=== PATIENT | female | born 1950 | race Caucasian/White ===

== ENCOUNTER → 2018-10-09 | Outpatient (CLI) | payer MEDICARE, OTHER ==
--- NOTE | 2018-10-09 15:06 | RADIOLOGY REPORT (SQ) ---
EXAM DESCRIPTION: CT RT UPPER EXTREMITY WITHOUT COMPLETED DATE/TIME: 10/09/2018 2:45 pm REASON FOR STUDY: S62.101A FRACTURE OF UNSP CARPAL BONE, RIGHT WRIST, INIT FOR CLOS FX S62.101A FRA CTURE OF UNSP CARPAL BONE, RIGHT WRIST, INIT FOR COMPARISON: None. TECHNIQUE: Axial imaging performed through the right wrist with reformatted oblique coronal and obli que sagittal imaging windowed for bone and soft tissues. All CT scanners at this facility use dose modulation, iterative reconstruction, and/or weight based d osing when appropriate to reduce radiation dose to as low as reasonably achievable (ALARA). [facility]: Dose Right [facility]: CareDose [facility]: Dose Right [facility]: Teradose 4D [facility]: [employer] RADIATION DOSE: CT Rad equipment meets quality standard of care and radiation dose reduction techniq ues were employed. CTDIvol: 4.5 mGy. DLP: 90 mGy-cm. mGy. LIMITATIONS: None. FINDINGS: SOFT TISSUES: Unremarkable BONY ARCHITECTURE: There is a fracture at the base of the trapezium, extending into the scaphotrapezi um joint with a 7 mm free fragment. Fracture donor site off the palmar aspect proximal trapezium is marked with an arrow on coronal reconstruction series 301, images 12-16. No other fractures are identified throughout the field of view. RADIOCARPAL JOINT: Mild ulnar negative variance without impaction changes or erosion of the lunate. INTERCARPAL JOINTS: Joint spaces are well maintained. No widening of the scapholunate interval. METACARPOPHALANGEAL JOINTS: Intact. There is mild osteoarthritis at the 1st carpometacarpal joint wi th joint space narrowing and bony spurring OTHER: Radial fiberglass splint is present. IMPRESSION: Nonunited fracture with free 7 mm fragment, at the scaphotrapezium joint. Donor site fo r the fracture fragment is off the palmar proximal aspect of the trapezium bone TECHNICAL DOCUMENTATION: JOB ID: [id number] Quality ID # [id number]: Final reports with documentation of one or more dose reduction techniques (e.g., Au tomated exposure control, adjustment of the mA and/or kV according to patient size, use of iterative reconstruction technique) 2010 [employer]- All Rights Reserved Reading location - IP/workstation name: [email or web address] [email or web address] BEDS AT THE [facility]
== END ==
LOC: RAD 15:21
PROVIDERS: ATTEND Physician Assistant
DX: S62.101A Fracture of unspecified carpal bone, right wrist, initial encounter for closed fracture (principal); X58.XXXA Exposure to other specified factors, initial encounter

== ENCOUNTER → 2019-01-11 | Day surgery (SDC) | payer MEDICARE, OTHER ==
[~2019-01-11] MED LIST: LIDOCAINE 1% INJ-PF (10 MG/ML) 30 ML SDV ONE
--- NOTE | 2019-01-11 14:45 | RADIOLOGY REPORT (SQ) ---
EXAM DESCRIPTION: FLUORO/NEEDLE PLACEMENT; ARTHRO SHOULDER INJECTION COMPLETED DATE/TIME: 01/11/2019 2:10 pm REASON FOR STUDY: UNSPECIFIED ROTATOR CUFF TEAR OR RUPTURE (M75.102) M75.102 UNSP ROTATR-CUFF TEAR/ RUPTR OF LEFT SHOULDER, NOT TR COMPARISON: None. PROCEDURE: SITE OF INJECTION: Posterior left shoulder CONTRAST TYPE AND DOSE: 6 cc 1% lidocaine, 10 cc dilute Omnipaque water-soluble contrast. Using local anesthesia and sterile technique with fluoroscopic guidance, the needle was advanced into the posterior left shoulder joint. Iodinated contrast was injected to verify intraarticular placemen t. This was followed by injection of the dilute contrast. The needle was removed. There were no im mediate complications. FINDINGS: Limited imaging of the left shoulder demonstrates needle overlying the humeral head. Po st injection demonstrates contrast following within the joint space. IMPRESSION: Left posterior shoulder injection for same-day CT arthrogram. COMMENT: Patient medication list reviewed: Yes- Quality ID# [id number]:Eligible professional attests to doc umenting in the medical record they obtained, updated, or reviewed the patient's current medications. . Quality ID 145: Final reports for procedures using fluoroscopy that document radiation exposure isak kim, or exposure time and number of fluorographic images (if radiation exposure indices are not avail able) TECHNICAL DOCUMENTATION: JOB ID: [id number] [employer]- All Rights Reserved FLUOROSCOPY TIME: 18 seconds 3 images saved to PACS. LIMITATIONS: None. Reading location - IP/workstation name: [email or web address]
--- NOTE | 2019-01-11 15:15 | RADIOLOGY REPORT (SQ) ---
EXAM DESCRIPTION: CT LT UPPER EXTREMITY WITH COMPLETED DATE/TIME: 01/11/2019 1:36 pm REASON FOR STUDY: UNSPECIFIED ROTATOR CUFF TEAR OR RUPTURE (M75.102) M75.102 UNSP ROTATR-CUFF TEAR/ RUPTR OF LEFT SHOULDER, NOT TR COMPARISON: None. TECHNIQUE: Axial imaging performed through the leftshoulder with reformatted oblique coronal and obl ique sagittal imaging windowed for bone and soft tissues. All CT scanners at this facility use dose modulation, iterative reconstruction, and/or weight based d osing when appropriate to reduce radiation dose to as low as reasonably achievable (ALARA). [facility]: Dose Right [facility]: CareDose [facility]: Dose Right [facility]: Teradose 4D [facility]: [employer] RADIATION DOSE: CT Rad equipment meets quality standard of care and radiation dose reduction techniq ues were employed. CTDIvol: 24.2 mGy. DLP: 566 mGy-cm. mGy. LIMITATIONS: None. FINDINGS: SOFT TISSUES: No left axillary or supraclavicular adenopathy. Surgical clips along the le ft peritracheal region from thyroidectomy. Left lung apex clear. BONY ARCHITECTURE: No acute fracture or malalignment. Normal bone density. There are old screw trac ts in the left humeral head on axial images 17-29, hardware has since been removed. GLENOHUMERAL JOINT: No dislocation. Superior subluxation of the left humeral head with respect to th e bony glenoid, humeral head abuts the undersurface of the acromion on coronal image 37 with mild acr omion bony spurring ACROMION AND AC JOINT: Type 2 acromion. Mild AC hypertrophy superiorly. There is bony spurring roderick g the undersurface of the acromion. ROTATOR CUFF: Full-thickness chronic appearing supra and infraspinatus tendon tear is with proximal r etraction, best shown on coronal images 34-46. The humeral head abuts the undersurface of the acromi on with acromion bony spurring. There is fatty atrophy of supra and infraspinatus muscles on sagitta l image 33. Subscapularis is intact. GLENOID, LABRUM AND BICEPS: Intra-articular long head biceps tendon is not identified. There is a sc rew tract at the superior edge of the biceps groove in the humeral head, suspect prior tenodesis. La hector is diffusely small without paralabral cysts. OTHER: No other significant finding. 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
== END ==
LOC: RAD 12:23
PROVIDERS: ATTEND Physician Assistant
DX: M75.102 Unspecified rotator cuff tear or rupture of left shoulder, not specified as traumatic (principal)
CPT/HCPCS: 77002; 23350; 73201; J3490